=== PATIENT | male | born 1955 | race Caucasian/White ===

== ENCOUNTER 2017-10-27 12:38 | Emergency (ER) | payer MEDICARE, OTHER ==
[~2017-10-27] VITALS: Ht 182.9 cm; Wt 81.7 kg
[~2017-10-27 12:38] MED LIST: ACYC800 PO; CEPH500 PO; HYDACE5 PO; LISI20 PO; OXYACE5T PO; TOBR.3OPO BOTHEYES; TRAM50 PO
[2017-10-27] MEDS ORDERED: Bactrim Ds Tab1 EACH PO (15:38)
[2017-10-27] MEDS ORDERED: Keflex500 MG PO (15:38)
== END 2017-10-27 16:02 | disposition home or self-care (01) ==
LOC: ER 12:38
DX: L03.115 Cellulitis of right lower limb (principal); I10 Essential (primary) hypertension
CPT/HCPCS: 73630; 93971; 99284

== ENCOUNTER 2018-05-22 12:49 | Emergency (ER) | payer MEDICARE, OTHER ==
[~2018-05-22] VITALS: Ht 182.9 cm; Wt 90.7 kg
[~2018-05-22 12:49] MED LIST changes: +Bactrim Ds Tab1 EACH PO; +Keflex500 MG PO; +Norco 5-325 Ta1 EACH PO; +Vibramycin100 MG PO
[2018-05-22] MEDS ORDERED: LISI20 PO (13:13)
== END 2018-05-22 14:28 | disposition home or self-care (01) ==
LOC: ER 12:49
DX: M25.532 Pain in left wrist (principal); Z79.899 Other long term (current) drug therapy
CPT/HCPCS: 29125; 73110; 99283-25

== ENCOUNTER 2018-06-04 15:41 | Emergency (ER) | payer MEDICARE, OTHER ==
[~2018-06-04] VITALS: Ht 182.9 cm; Wt 90.7 kg
[2018-06-04] MEDS ORDERED: Monodox100 MG PO (16:34)
== END 2018-06-04 16:43 | disposition home or self-care (01) ==
LOC: ER 15:41
DX: I87.2 Venous insufficiency (chronic) (peripheral) (principal); L03.115 Cellulitis of right lower limb; I10 Essential (primary) hypertension
CPT/HCPCS: 99283

== ENCOUNTER 2018-06-15 13:30 | Day surgery (SDC) | payer MEDICARE, OTHER ==
[~2018-06-15 13:30] MED LIST changes: +Monodox100 MG PO
== END 2018-06-15 22:39 | disposition home or self-care (01) ==
LOC: WOUND
DX: T81.89XA Other complications of procedures, not elsewhere classified, initial encounter (principal); I83.012 Varicose veins of right lower extremity with ulcer of calf; L97.212 Non-pressure chronic ulcer of right calf with fat layer exposed; I10 Essential (primary) hypertension; I83.92 Asymptomatic varicose veins of left lower extremity
CPT/HCPCS: G0463

== ENCOUNTER 2018-06-30 00:12 | Day surgery (SDC) | payer MEDICARE, OTHER | END 2018-06-30 22:40 | disposition home or self-care (01) | LOC: WOUND 00:12 | DX: L97.812 Non-pressure chronic ulcer of other part of right lower leg with fat layer exposed (principal); I87.2 Venous insufficiency (chronic) (peripheral); I10 Essential (primary) hypertension | CPT/HCPCS: 11104; 88305; 88312 ==

== ENCOUNTER 2018-07-07 08:00 | Day surgery (SDC) | payer MEDICARE, OTHER | END 2018-07-07 22:34 | disposition home or self-care (01) | LOC: WOUND 08:00 | DX: L97.812 Non-pressure chronic ulcer of other part of right lower leg with fat layer exposed (principal); I87.2 Venous insufficiency (chronic) (peripheral); I10 Essential (primary) hypertension | CPT/HCPCS: G0463 ==

== ENCOUNTER 2018-08-13 01:10 | Day surgery (SDC) | payer MEDICARE, OTHER | END 2018-08-13 22:45 | disposition home or self-care (01) | LOC: WOUND 01:10 | DX: I87.2 Venous insufficiency (chronic) (peripheral) (principal); L97.812 Non-pressure chronic ulcer of other part of right lower leg with fat layer exposed; I10 Essential (primary) hypertension; I89.0 Lymphedema, not elsewhere classified; I73.9 Peripheral vascular disease, unspecified; M10.9 Gout, unspecified | CPT/HCPCS: G0463 ==

== ENCOUNTER 2018-09-03 07:53 | Day surgery (SDC) | payer MEDICARE, OTHER | END 2018-09-03 23:19 | disposition home or self-care (01) | LOC: WOUND 07:53 | DX: I87.2 Venous insufficiency (chronic) (peripheral) (principal); L97.812 Non-pressure chronic ulcer of other part of right lower leg with fat layer exposed; L02.01 Cutaneous abscess of face; I10 Essential (primary) hypertension | CPT/HCPCS: G0463 ==

== ENCOUNTER 2019-03-16 12:38 | Emergency (ER) | payer MEDICARE, OTHER ==
[~2019-03-16] VITALS: Ht 182.9 cm; Wt 90.7 kg
[2019-03-16] MEDS ORDERED: Monodox100 MG PO (13:37)
[2019-03-16] MEDS ORDERED: MUPIROCIN1 GM TOP (13:37)
== END 2019-03-16 13:55 | disposition home or self-care (01) ==
LOC: ER 12:38
DX: L02.01 Cutaneous abscess of face (principal); L03.211 Cellulitis of face; I10 Essential (primary) hypertension; Z79.899 Other long term (current) drug therapy
CPT/HCPCS: 99282

== ENCOUNTER → 2019-05-15 | Outpatient (CLI) | payer MEDICARE, OTHER ==
[~2019-05-15] MED LIST changes: +MUPIROCIN1 GM TOP
== END | disposition home or self-care (01) ==
LOC: LAB EV 10:42 → LAB SHORT 10:42
DX: L08.9 Local infection of the skin and subcutaneous tissue, unspecified (principal)
CPT/HCPCS: 87070; 87205

== ENCOUNTER → 2019-06-17 | Outpatient (CLI) | payer MEDICARE, OTHER | LOC: LAB SHORT 10:30 → LAB 10:30 | DX: L08.9 Local infection of the skin and subcutaneous tissue, unspecified (principal); L57.0 Actinic keratosis; R21 Rash and other nonspecific skin eruption | CPT/HCPCS: 87070; 87205 ==

== ENCOUNTER → 2019-10-07 | Outpatient (CLI) | payer MEDICARE, OTHER | LOC: LAB SHORT 16:49 → LAB 16:49 | DX: B35.8 Other dermatophytoses (principal) | CPT/HCPCS: 87070; 87205 ==

== ENCOUNTER → 2019-10-22 | Outpatient (CLI) | payer MEDICARE, OTHER | LOC: LAB 12:00 → LAB SHORT 12:00 | DX: D48.5 Neoplasm of uncertain behavior of skin (principal) | CPT/HCPCS: 87071; 87075; 87205 ==

== ENCOUNTER 2021-01-13 11:38 | Emergency (ER) | payer MEDICARE, OTHER ==
[~2021-01-13] VITALS: Ht 180.3 cm; Wt 102.1 kg
[2021-01-13 12:43] LABS: BASOPHILS ABSOLUTE AUTO 0.06 K/mm3 (0.00-0.23); BASOPHILS PERCENT AUTO 1 % (0-2); EOSINOPHILS ABSOLUTE AUTO 0.27 K/mm3 (0.00-0.68); EOSINOPHILS PERCENT AUTO 2 % (0-6); Hematocrit 44.2 % (37.0-53.0); Hemoglobin 14.5 g/dL (13.5-17.5); IMMATURE GRAN ABSOLUTE AUTO 0.05 K/mm3 (0.00-0.10); IMMATURE GRAN PERCENT AUTO 1 % (0-1); LYMPHOCYTES ABSOLUTE AUTO 1.97 K/mm3 (0.84-5.20); LYMPHOCYTES PERCENT AUTO 18 % (21-46); MONOCYTES PERCENT AUTO 8 % (4-13); Mean Corpuscular HGB 30.5 pg (26.0-34.0); Mean Corpuscular HGB Conc 32.8 g/dL (31.5-36.5); Mean Corpuscular Volume 93 fL (80-100); Mean Platelet Volume 9.3 fL (9.1-12.4); NEUTROPHILS PERCENT AUTO 71 % (41-73); Platelet Count 227 K/mm3 (150-400); RDW Coefficient Variation 13.3 % (11.7-14.2); RDW Standard Deviation 45.5 fL (35.1-46.3); Red Blood Cell Count 4.75 M/mm3 (4.30-5.90); White Blood Cell Count 11.05 K/mm3 (4.00-11.30)
[2021-01-13 13:10] LABS: Alanine Aminotransfer (ALT/SGP 31 U/L (12-78); Albumin, Blood 3.9 g/dL (3.4-5.0); Albumin/Globulin Ratio 0.9 (0.8-1.8); Alk Phos 72 U/L (50-136); Anion Gap 5 mmol/L (6-16); Aspartate Aminotrans (AST/SGOT 29 U/L (12-37); Bilirubin, Total 0.4 mg/dL (0.1-1.0); Blood Urea Nitrogen 38 mg/dL (8-24); Bun/Creatinine Ratio 29.7 (12.0-20.0); CO2, Blood 25 mmol/L (21-32); Calcium, Blood 8.6 mg/dL (8.5-10.1); Chloride, Blood 106 mmol/L (98-108); Creatinine, Blood 1.28 mg/dL (0.60-1.20); Globulin, Blood 4.2 g/dL (2.2-4.0); Glomerular Filtration Rate 57 (60-); Glucose, Blood 113 mg/dL (70-99); Potassium, Blood 4.9 mmol/L (3.5-5.5); Sodium, Blood 136 mmol/L (136-145); Total Protein, Blood 8.1 g/dL (6.4-8.2); Troponin I <0.015 ng/mL (0.000-0.040)
[2021-01-13 14:29] LABS: International Normalized Ratio 0.86; Prothrombin Time Results 9.4 Sec (9.7-11.5)
[2021-01-13 15:58] LABS: Source, Urine Clean Catch
[2021-01-13] MEDS ORDERED: LOSA25 PO (15:58)
[2021-01-13] MEDS ORDERED: LISI20 PO (15:59)
[2021-01-13 16:00] LABS: Appearance, Urine Clear (Clear); Bilirubin, Urine Neg (Neg); Blood, Urine 1+ (Neg); Color, Urine Yellow (P-Yellow); Glucose Qualitative, Urine Neg (Neg); Ketones, Urine Neg (Neg); Leukocyte Esterase, Urine Neg (Neg); Nitrite, Urine Neg (Neg); Protein, Urine 2+ (Neg); Specific Gravity, Urine 1.025 (1.003-1.022); Urobilinogen, Urine NORM (Normal)
[2021-01-13 16:17] LABS: Bacteria Few /hpf; Hyaline Casts 0-2 /lpf (0-2); Red Blood Cells, Urine 0-2 /hpf (0-2); Squamous Epithelial Cells Rare /hpf (Few); White Blood Cells, Urine 0-2 /hpf (0-5)
[2021-01-13 16:42] LABS: SARS-Cov-2 (COVID-19) PCR, MMC NEGATIVE (NEGATIVE)
== END 2021-01-13 17:32 | disposition home or self-care (01) ==
LOC: ER 11:38
PROVIDERS: Emergency Medicine Emergency Medical Services; Physician Assistant
DX: N48.30 Priapism, unspecified (principal); I10 Essential (primary) hypertension; Z20.822 Contact with and (suspected) exposure to COVID-19; Z79.899 Other long term (current) drug therapy
CPT/HCPCS: 36415; 54235; 80053; 81001; 84484; 85025; 85610; 96374-59; 96376-59; 99284-25; J0461; J2270; J2370; U0004

== ENCOUNTER 2021-02-06 12:31 | Emergency (ER) | payer MEDICARE, OTHER ==
[~2021-02-06] VITALS: Ht 180.3 cm; Wt 97.5 kg
[~2021-02-06 12:31] MED LIST changes: +LOSA25 PO
[2021-02-06 13:22] LABS: BASOPHILS ABSOLUTE AUTO 0.07 K/mm3 (0.00-0.23); BASOPHILS PERCENT AUTO 1 % (0-2); EOSINOPHILS PERCENT AUTO 4 % (0-6); Hematocrit 34.7 % (37.0-53.0); Hemoglobin 11.7 g/dL (13.5-17.5); IMMATURE GRAN ABSOLUTE AUTO 0.03 K/mm3 (0.00-0.10); IMMATURE GRAN PERCENT AUTO 0 % (0-1); LYMPHOCYTES ABSOLUTE AUTO 1.36 K/mm3 (0.84-5.20); LYMPHOCYTES PERCENT AUTO 18 % (21-46); MONOCYTES ABSOLUTE AUTO 0.62 K/mm3 (0.16-1.47); MONOCYTES PERCENT AUTO 8 % (4-13); Mean Corpuscular HGB 29.8 pg (26.0-34.0); Mean Corpuscular HGB Conc 33.7 g/dL (31.5-36.5); Mean Corpuscular Volume 88 fL (80-100); NEUTROPHILS PERCENT AUTO 68 % (41-73); Platelet Count 354 K/mm3 (150-400); RDW Coefficient Variation 12.6 % (11.7-14.2); RDW Standard Deviation 41.3 fL (35.1-46.3); Red Blood Cell Count 3.93 M/mm3 (4.30-5.90); White Blood Cell Count 7.48 K/mm3 (4.00-11.30)
[2021-02-06 13:56] LABS: Albumin, Blood 3.2 g/dL (3.4-5.0); Albumin/Globulin Ratio 0.7 (0.8-1.8); Bilirubin, Total 0.4 mg/dL (0.1-1.0); Bun/Creatinine Ratio 16.3 (12.0-20.0); Calcium, Blood 9.4 mg/dL (8.5-10.1); Creatinine, Blood 1.29 mg/dL (0.60-1.20); Globulin, Blood 4.7 g/dL (2.2-4.0); Potassium, Blood 4.2 mmol/L (3.5-5.5); Total Protein, Blood 7.9 g/dL (6.4-8.2)
[2021-02-06] MEDS ORDERED: Pepcid20 MG PO (16:32)
[2021-02-06] MEDS ORDERED: METPRE4DP PO (16:32)
== END 2021-02-06 17:40 | disposition home or self-care (01) ==
LOC: ER 12:31
PROVIDERS: Physician Assistant
DX: T78.3XXA Angioneurotic edema, initial encounter (principal); T46.4X5A Adverse effect of angiotensin-converting-enzyme inhibitors, initial encounter; I10 Essential (primary) hypertension; Z79.899 Other long term (current) drug therapy
CPT/HCPCS: 80053; 85025; 96374; 96375; 99284-25; J2930; J7030

== ENCOUNTER → 2021-07-17 | Outpatient (CLI) | payer MEDICARE, OTHER ==
[~2021-07-17] MED LIST changes: +METPRE4DP PO; +Pepcid20 MG PO
== END ==
LOC: LAB SHORT 11:52 → LAB 11:52
DX: R60.9 Edema, unspecified (principal)
CPT/HCPCS: 85379

== ENCOUNTER 2023-12-09 09:20 | Emergency (ER) | payer MEDICARE, OTHER ==
[~2023-12-09] VITALS: Ht 182.9 cm; Wt 90.7 kg
[~2023-12-09 09:20] MED LIST changes: +ATORVASTATIN CA20 MG PO; +BUMETANIDE2 M6 PO; +HYDRA25 PO; +KLOR-CON 1010 ME9 PO; +LOSARTAN POTAS100 M1 PO; +METOPROLOL TART5010 PO; +NEURONTIN300 MG PO; +PRED20 PO; +TEMA30 PO
[2023-12-09] MEDS ORDERED: HYDROcodone 5-APAP 325 TAB PO ONE (10:30)
[2023-12-09 10:50] LABS: Albumin, Blood 3.3 g/dL (3.4-5.0); Albumin/Globulin Ratio 0.8 (0.8-1.8); Bilirubin, Total 0.5 mg/dL (0.1-1.0); Bun/Creatinine Ratio 27.5 (12.0-20.0); C-REACTIVE PROTEIN, EXT RANGE 1.86 mg/dL (0.000-0.300); Calcium, Blood 9.3 mg/dL (8.5-10.1); Creatinine, Blood 1.6 mg/dL (0.60-1.20); Globulin, Blood 4.3 g/dL (2.2-4.0); Total Protein, Blood 7.6 g/dL (6.4-8.2)
[2023-12-09 11:32] LABS: BASOPHILS ABSOLUTE AUTO 0.05 K/mm3 (0.00-0.23); BASOPHILS PERCENT AUTO 0 % (0-2); EOSINOPHILS ABSOLUTE AUTO 0.31 K/mm3 (0.00-0.68); EOSINOPHILS PERCENT AUTO 3 % (0-6); Hematocrit 36.4 % (37.0-53.0); Hemoglobin 12.5 g/dL (13.5-17.5); IMMATURE GRAN ABSOLUTE AUTO 0.06 K/mm3 (0.00-0.10); IMMATURE GRAN PERCENT AUTO 1 % (0-1); LYMPHOCYTES ABSOLUTE AUTO 1.33 K/mm3 (0.84-5.20); LYMPHOCYTES PERCENT AUTO 12 % (21-46); MONOCYTES ABSOLUTE AUTO 1.15 K/mm3 (0.16-1.47); MONOCYTES PERCENT AUTO 10 % (4-13); Mean Corpuscular HGB 30.1 pg (26.0-34.0); Mean Corpuscular HGB Conc 34.3 g/dL (31.5-36.5); Mean Corpuscular Volume 88 fL (80-100); Mean Platelet Volume 9.1 fL (9.1-12.4); NEUTROPHILS ABSOLUTE AUTO 8.37 K/mm3 (1.96-9.15); NEUTROPHILS PERCENT AUTO 74 % (41-73); Platelet Count 220 K/mm3 (150-400); RDW Coefficient Variation 13.4 % (11.7-14.2); RDW Standard Deviation 42.4 fL (35.1-46.3); Red Blood Cell Count 4.15 M/mm3 (4.30-5.90); White Blood Cell Count 11.27 K/mm3 (4.00-11.30)
[2023-12-09] MEDS ORDERED: Clindamycin 600mg in D5W 50 ML IV ONE (12:45)
[2023-12-09 14:17] VITALS: BP 156/90
[2023-12-09] MEDS ORDERED: CEPH500 PO (14:24)
[2023-12-09] MEDS ORDERED: Bactrim Ds Tab1 EACH PO (14:24)
[2023-12-09] MEDS ORDERED: HYDR1TAB94 PO (14:30)
== END 2023-12-09 14:40 | disposition home or self-care (01) ==
LOC: ER 09:20
PROVIDERS: Physician Assistant
DX: L03.114 Cellulitis of left upper limb (principal); I12.9 Hypertensive chronic kidney disease with stage 1 through stage 4 chronic kidney disease, or unspecified chronic kidney disease; N18.9 Chronic kidney disease, unspecified; E78.5 Hyperlipidemia, unspecified; Z88.8 Allergy status to other drugs, medicaments and biological substances
CPT/HCPCS: 73110; 73130; 73201; 80053; 85025; 86140; A9270; Q9967

== ENCOUNTER 2024-01-31 09:17 | Emergency (ER) | payer MEDICARE, OTHER ==
[~2024-01-31] VITALS: Ht 182.9 cm; Wt 102.1 kg
[~2024-01-31 09:17] MED LIST changes: +HYDR1TAB94 PO
[2024-01-31] MEDS ORDERED: OxyCODONE 7.5 mg/Acetam 325 mg TABLET PO ONE (09:40)
[2024-01-31] MEDS ORDERED: Dexamethasone Sod Phos 10 MG/ML 1ML VIAL PO ONE (09:40)
[2024-01-31 10:26] LABS: BASOPHILS ABSOLUTE AUTO 0.04 K/mm3 (0.00-0.23); BASOPHILS PERCENT AUTO 0 % (0-2); EOSINOPHILS ABSOLUTE AUTO 0.33 K/mm3 (0.00-0.68); EOSINOPHILS PERCENT AUTO 3 % (0-6); Hematocrit 38.8 % (37.0-53.0); Hemoglobin 13.2 g/dL (13.5-17.5); IMMATURE GRAN ABSOLUTE AUTO 0.06 K/mm3 (0.00-0.10); IMMATURE GRAN PERCENT AUTO 1 % (0-1); LYMPHOCYTES ABSOLUTE AUTO 1.39 K/mm3 (0.84-5.20); LYMPHOCYTES PERCENT AUTO 13 % (21-46); MONOCYTES ABSOLUTE AUTO 0.96 K/mm3 (0.16-1.47); MONOCYTES PERCENT AUTO 9 % (4-13); Mean Corpuscular HGB 30.6 pg (26.0-34.0); Mean Corpuscular Volume 90 fL (80-100); Mean Platelet Volume 8.9 fL (9.1-12.4); NEUTROPHILS ABSOLUTE AUTO 8.17 K/mm3 (1.96-9.15); NEUTROPHILS PERCENT AUTO 75 % (41-73); Platelet Count 296 K/mm3 (150-400); RDW Coefficient Variation 13.3 % (11.7-14.2); Red Blood Cell Count 4.32 M/mm3 (4.30-5.90); White Blood Cell Count 10.95 K/mm3 (4.00-11.30)
[2024-01-31 10:45] LABS: Bun/Creatinine Ratio 27.1 (12.0-20.0); Calcium, Blood 9.6 mg/dL (8.5-10.1); Creatinine, Blood 1.44 mg/dL (0.60-1.20); Potassium, Blood 3.8 mmol/L (3.5-5.5)
[2024-01-31] MEDS ORDERED: HYDR1TAB94 PO (12:33)
[2024-01-31] MEDS ORDERED: SULTRIDS PO (12:33)
[2024-01-31 12:57] VITALS: BP 142/90
== END 2024-01-31 12:55 | disposition home or self-care (01) ==
LOC: ER 09:17
PROVIDERS: Emergency Medicine
DX: L03.113 Cellulitis of right upper limb (principal); Z88.8 Allergy status to other drugs, medicaments and biological substances; Z79.899 Other long term (current) drug therapy; I12.9 Hypertensive chronic kidney disease with stage 1 through stage 4 chronic kidney disease, or unspecified chronic kidney disease; N18.9 Chronic kidney disease, unspecified
CPT/HCPCS: 73200; 73201; 80048; 85025; 99284-25; A9270; J1100; Q9967

== ENCOUNTER 2024-07-18 11:16 | Emergency (ER) | payer MEDICARE, OTHER ==
[~2024-07-18] VITALS: Ht 182.9 cm; Wt 108.9 kg
[~2024-07-18 11:16] MED LIST changes: +SULTRIDS PO
[2024-07-18 11:58] VITALS: BP 147/90
[2024-07-18] MEDS ORDERED: SULTRIDS PO (12:02)
[2024-07-18] MEDS ORDERED: HYDROCODONE-AC1 EA19 PO (12:02)
== END 2024-07-18 12:05 | disposition home or self-care (01) ==
LOC: ER 11:16
DX: L03.113 Cellulitis of right upper limb (principal); I12.9 Hypertensive chronic kidney disease with stage 1 through stage 4 chronic kidney disease, or unspecified chronic kidney disease; N18.9 Chronic kidney disease, unspecified; Z79.899 Other long term (current) drug therapy
CPT/HCPCS: 99282

== ENCOUNTER 2024-08-05 09:38 | Inpatient (IN) | payer MEDICARE, OTHER ==
[~2024-08-05] VITALS: Ht 182.9 cm; Wt 104.0 kg
[~2024-08-05 09:38] MED LIST changes: +HYDROCODONE-AC1 EA19 PO; +METO25 PO; -METOPROLOL TART5010 PO
[2024-08-05 15:44] LABS: BASOPHILS ABSOLUTE AUTO 0.05 K/mm3 (0.00-0.23); BASOPHILS PERCENT AUTO 1 % (0-2); EOSINOPHILS ABSOLUTE AUTO 0.23 K/mm3 (0.00-0.68); EOSINOPHILS PERCENT AUTO 2 % (0-6); Hematocrit 39.2 % (37.0-53.0); Hemoglobin 13.2 g/dL (13.5-17.5); IMMATURE GRAN ABSOLUTE AUTO 0.04 K/mm3 (0.00-0.10); IMMATURE GRAN PERCENT AUTO 0 % (0-1); LYMPHOCYTES ABSOLUTE AUTO 1.18 K/mm3 (0.84-5.20); LYMPHOCYTES PERCENT AUTO 11 % (21-46); MONOCYTES ABSOLUTE AUTO 0.75 K/mm3 (0.16-1.47); MONOCYTES PERCENT AUTO 7 % (4-13); Mean Corpuscular HGB 29.7 pg (26.0-34.0); Mean Corpuscular HGB Conc 33.7 g/dL (31.5-36.5); Mean Corpuscular Volume 88 fL (80-100); Mean Platelet Volume 8.8 fL (9.1-12.4); NEUTROPHILS PERCENT AUTO 79 % (41-73); Platelet Count 323 K/mm3 (150-400); RDW Coefficient Variation 13.1 % (11.7-14.2); RDW Standard Deviation 41.6 fL (35.1-46.3); Red Blood Cell Count 4.45 M/mm3 (4.30-5.90); White Blood Cell Count 10.75 K/mm3 (4.00-11.30)
[2024-08-05 16:04] LABS: C-REACTIVE PROTEIN, EXT RANGE 1.75 mg/dL (0.000-0.300)
[2024-08-05] MEDS ORDERED: Morphine Sulfate 4 MG/1 ML Injection IV ONE (16:05)
[2024-08-05 16:07] LABS: Albumin, Blood 3.3 g/dL (3.4-5.0); Albumin/Globulin Ratio 0.7 (0.8-1.8); Bilirubin, Total 0.3 mg/dL (0.1-1.0); Bun/Creatinine Ratio 26.4 (12.0-20.0); Calcium, Blood 9.6 mg/dL (8.5-10.1); Creatinine, Blood 1.4 mg/dL (0.60-1.20); Globulin, Blood 4.8 g/dL (2.2-4.0); Potassium, Blood 3.9 mmol/L (3.5-5.5); Total Protein, Blood 8.1 g/dL (6.4-8.2)
[2024-08-05] MEDS ORDERED: Clindamycin 600mg in D5W 50 ML IV ONE (16:15)
[2024-08-05] MEDS ORDERED: HYDROmorphone HCl/Pf 1MG SYR IV ONE (17:05)
[2024-08-05] MEDS ORDERED: Lactated Ringer's 1,000 ML IV SCH (20:35)
[2024-08-05] MEDS ORDERED: Ondansetron HCl 2 MG / ML 2ML Vial IV PRN (20:35)
[2024-08-05] MEDS ORDERED: OxyCODONE 5 mg/Acetamin 325 mg TABLET PO PRN (20:40)
[2024-08-05] MEDS ORDERED: Sennosides 8.6 MG Tab PO SCH (21:00)
[2024-08-05] MEDS ORDERED: CeFAZolin Sodium 2,000 MG in NS 100 ML IV SCH (21:00)
[2024-08-05] MEDS ORDERED: Lactobacil 2-S.Thermo-Bifido 1 1 Cap PO SCH (21:00)
[2024-08-05] MEDS ORDERED: HydrALAZINE HCl 25 MG Tab PO SCH (21:00)
[2024-08-05 22:15] VITALS: BP 168/86
[2024-08-05 22:44] LABS: U Amphetamine Screen Not Detected; U Barbituate Screen Not Detected; U Benzodiazapine Screen Not Detected; U Buprenorphine Screen Not Detected; U Cannabinoids Screen DETECTED; U Cocaine Screen Not Detected; U Methadone Screen Not Detected; U Methamphetamine Screen DETECTED; U Opiates Screen DETECTED; U Oxycodone Screen Not Detected; U Phencyclidine Screen Not Detected
[2024-08-06 00:09] VITALS: BP 144/84
--- NOTE | 2024-08-06 04:59 | NUR ---
SHIFT SUMMARY ANOOP WAS ALERT AND FULLY ORIENTED WHEN HE WAS ADMITTED FROM THE ED. PT ABLE TO AMBULATE INDEPENDENTLY. CHIEF C/O L HAND CELLULITIS. ADMIT COMPLETE PT SETTLED. PT PAINFUL, MEDICATED TO MODERATE EFFECT. NO ACUTE EVENTS AFTER ARRIVAL OR NOTED CHANGES TO PT CONDITION. PT ABLE TO WIGGLE FINGERS, CIRCULATION INTACT.
[2024-08-06 05:48] VITALS: BP 156/90
[2024-08-06 06:29] LABS: Hematocrit 36.4 % (37.0-53.0); Hemoglobin 12.1 g/dL (13.5-17.5); Mean Corpuscular HGB 29.7 pg (26.0-34.0); Mean Corpuscular HGB Conc 33.2 g/dL (31.5-36.5); Mean Corpuscular Volume 89 fL (80-100); Platelet Count 242 K/mm3 (150-400); RDW Coefficient Variation 13.2 % (11.7-14.2); RDW Standard Deviation 43.4 fL (35.1-46.3); Red Blood Cell Count 4.07 M/mm3 (4.30-5.90)
[2024-08-06 06:55] LABS: Bun/Creatinine Ratio 23.1 (12.0-20.0); Calcium, Blood 8.9 mg/dL (8.5-10.1); Creatinine, Blood 1.34 mg/dL (0.60-1.20); Potassium, Blood 3.7 mmol/L (3.5-5.5)
[2024-08-06 07:21] VITALS: BP 189/91
[2024-08-06] MEDS ORDERED: Heparin Sodium,Porcine 5,000 UNIT/0.5 ML SDV SC SCH (09:00)
[2024-08-06] MEDS ORDERED: Atorvastatin 10 MG Tab PO SCH (09:00)
[2024-08-06 14:48] VITALS: BP 178/85
--- NOTE | 2024-08-06 17:12 | NUR ---
SHIFT SUMMARY PATIENT IS AOX4, SBA TO IND IN ROOM. LEFT HAND AND WRIST NOTICIBLY MORE SWOLLEN THAN RIGHT HAND. LIMITED ROM. MEDICATED FOR PAIN T/O SHIFT. ORTHO CONSULT WAS PLACED TODAY AND PATIENT WAS SEEN BY DR. FAGAN, NO NEW ORDERS. IV ABX INFUSED. PATIENT TOLERATING PO INTAKE AND VOIDS INDEP. VITAL SIGNS ARE STABLE CALL LIGHT IN REACH.
[2024-08-06 18:59] VITALS: BP 141/75
--- NOTE | 2024-08-07 04:24 | NUR ---
SHIFT SUMMARY ANOOP WAS ALERT AND FULLY ORIENTED ON ASSESSMENT. PT CONDITION REMAINS UNCHANGED SINCE ADMIT. PAIN MODERATELY WELL CONTROLLED SENSATION AND CIRCULATION TO HAND INTACT. NO ACUTE EVENTS NO CHANGES TONIGHT. PT RESTING.
[2024-08-07 04:57] VITALS: BP 162/101
[2024-08-07 07:13] VITALS: BP 153/95
[2024-08-07] MEDS ORDERED: LORazepam 0.5 MG Tab PO PRN (08:40)
[2024-08-07 10:03] VITALS: BP 155/102
[2024-08-07 11:14] VITALS: BP 130/94
[2024-08-07 14:32] VITALS: BP 134/97
--- NOTE | 2024-08-07 16:00 | NUR ---
ASSUMED CARE OF PATIENT AT THIS TIME.
--- NOTE | 2024-08-07 16:12 | NUR ---
SHIFT SUMMARY/TRANSFER OF CARE PT IS A/OX4, IND TO BR. L HAND SWELLING, NO REDNESS OR DRAINAGE PRESENT. PAIN MANAGEABLE W/ PAIN MEDS PER EMAR. IV ABX GIVEN. PT MEDICATED FOR ANXIETY THIS AM W/ GOOD RESULTS. VSS. PT SLEEPING IN BED W/ CALL LIGHT IN REACH. REPORT TO INES SOLORZANO.
--- NOTE | 2024-08-07 17:48 | NUR ---
STABLE SINCE THIS RN ASSUMED CARE OF PT AT 1600. PT UP TO AMBULATE HALLWAYS INDEP. MEDICATED PRN PAIN AND ANXIETY. TOLERATING DIET WELL. CONT ABX THERAPY.
[2024-08-07 19:08] VITALS: BP 145/97
[2024-08-08 04:11] VITALS: BP 170/96
[2024-08-08 04:12] LABS: CYCLIC CITRULLINATED PEP,IGG/A 4 Units (0-19)
[2024-08-08 07:01] VITALS: BP 182/103
[2024-08-08 07:05] VITALS: BP 152/92
[2024-08-08 14:12] VITALS: BP 157/97
--- NOTE | 2024-08-08 17:02 | NUR ---
SUMMARY NO ACUTE CHANGES T/O SHIFT. PT INDEPENDENT, AMBULATED IN HALLS THIS AFTERNOON. MEDICATED PER ORDERS FOR PAIN. IV ABX PER ORDERS. RESTING IN BED AT THIS TIME, CALL LIGHT IN REACH.
[2024-08-08 18:55] VITALS: BP 138/96
[2024-08-08 22:09] LABS: ANTI-NUCLEAR AB ANA,IGG ELISA None Detected (None Detected)
[2024-08-09 04:56] VITALS: BP 152/90
[2024-08-09 07:06] VITALS: BP 158/94
--- NOTE | 2024-08-09 07:49 | NUR ---
SUMMARY NO ACUTE CHANGES TONIGHT.REPORTS PAIN CONTROLLED WITH PERCOCET.
[2024-08-09 14:39] VITALS: BP 176/100
--- NOTE | 2024-08-09 17:20 | NUR ---
END OF SHIFT PT RESTING QUIETLY IN ROOM. IV CURRENTLY TO SL. LEFT HAND REMAINS SWOLLEN. PT INDEPENDENT IN ROOM. WILL CONTINUE TO MONITOR.
[2024-08-09 20:05] VITALS: BP 155/95
[2024-08-09] MEDS ORDERED: OxyCODONE 5 mg/Acetamin 325 mg TABLET PO PRN (20:10)
[2024-08-10 04:44] VITALS: BP 161/101
[2024-08-10 05:17] LABS: Hematocrit 35.8 % (37.0-53.0); Hemoglobin 11.9 g/dL (13.5-17.5); Mean Corpuscular HGB 29.2 pg (26.0-34.0); Mean Corpuscular HGB Conc 33.2 g/dL (31.5-36.5); Mean Corpuscular Volume 88 fL (80-100); Mean Platelet Volume 9.6 fL (9.1-12.4); Platelet Count 176 K/mm3 (150-400); RDW Coefficient Variation 13.1 % (11.7-14.2); Red Blood Cell Count 4.07 M/mm3 (4.30-5.90); White Blood Cell Count 5.13 K/mm3 (4.00-11.30)
[2024-08-10 05:33] LABS: Albumin, Blood 2.8 g/dL (3.4-5.0); Anion Gap 9 mmol/L (3-11); Blood Urea Nitrogen 23 mg/dL (8-24); Bun/Creatinine Ratio 17.3 (12.0-20.0); CO2, Blood 26 mmol/L (21-32); Calcium, Blood 8.5 mg/dL (8.5-10.1); Chloride, Blood 106 mmol/L (98-108); Creatinine, Blood 1.33 mg/dL (0.60-1.20); Glomerular Filtration Rate 59 (60-); Glucose, Blood 93 mg/dL (70-99); Phosphorus, Blood 3.3 mg/dL (2.5-4.9); Sodium, Blood 134 mmol/L (136-145)
[2024-08-10 05:34] LABS: Potassium, Blood 6.7 mmol/L (3.5-5.5)
--- NOTE | 2024-08-10 06:15 | NUR ---
NOC SUMMARY- PT REPORTING INCREASED PAIN. PROVIDER CALLED AND A ADDITIONAL TAB OF PAIN MED WAS ORDERED. PT PAIN MANAGED WELL. PT TOLERATING PO. PT VOIDING WELL. PT HAD A CRITICAL K+. PT WAS A DIFFICULT LAB DRAW. DR HAIR WAS CALLED AND HE ASKED FOR A REDRAW OF LAB. AWAITING REDRAW CURRENTLY. PT IN NO DISTRESS. PT DENIES CX PAIN OR PRESSURE. CALL LIGHT IN REACH.
[2024-08-10 07:17] VITALS: BP 175/94
[2024-08-10 07:29] LABS: Magnesium, Blood 2.1 mg/dL (1.6-2.4)
[2024-08-10 07:52] LABS: Albumin, Blood 2.8 g/dL (3.4-5.0); Anion Gap 9 mmol/L (3-11); Blood Urea Nitrogen 23 mg/dL (8-24); Bun/Creatinine Ratio 16.1 (12.0-20.0); CO2, Blood 26 mmol/L (21-32); Calcium, Blood 8.7 mg/dL (8.5-10.1); Chloride, Blood 107 mmol/L (98-108); Creatinine, Blood 1.43 mg/dL (0.60-1.20); Glomerular Filtration Rate 54 (60-); Glucose, Blood 93 mg/dL (70-99); Phosphorus, Blood 3.1 mg/dL (2.5-4.9); Potassium, Blood 4.6 mmol/L (3.5-5.5); Sodium, Blood 137 mmol/L (136-145)
[2024-08-10] MEDS ORDERED: PredniSONE 20 MG Tab PO SCH (13:00)
[2024-08-10 14:14] VITALS: BP 179/93
[2024-08-10 14:15] VITALS: BP 179/93
--- NOTE | 2024-08-10 17:48 | NUR ---
END OF SHIFT PT RESTING QUIETLY. LEFT HAND REMAINS SWOLLEN. DENIES COMPLAINTS.
[2024-08-10 19:16] VITALS: BP 180/99
[2024-08-11 04:41] VITALS: BP 160/100
--- NOTE | 2024-08-11 04:49 | NUR ---
SHIFT SUMMARY; PATIENT SLEPT IN LONG INTERVALS, UP TO THE BR TWICE. MEDICATED FOR PAIN TWICE. PATIENT FEELS THE SWELLING IS STARTING TO GO DOWN IN HIS HAND. BP'S CONTINUE TO BE ELEVATED. HE STATES HE TAKES MORE BP MED WHEN HE IS HOME AND A DIURETIC.
[2024-08-11 06:27] LABS: Bun/Creatinine Ratio 18.3 (12.0-20.0); Calcium, Blood 8.8 mg/dL (8.5-10.1); Creatinine, Blood 1.31 mg/dL (0.60-1.20); Potassium, Blood 5.1 mmol/L (3.5-5.5)
[2024-08-11 06:51] LABS: Hematocrit 35.8 % (37.0-53.0); Hemoglobin 12.1 g/dL (13.5-17.5); Mean Corpuscular HGB 29.7 pg (26.0-34.0); Mean Corpuscular HGB Conc 33.8 g/dL (31.5-36.5); Mean Corpuscular Volume 88 fL (80-100); Mean Platelet Volume 9.3 fL (9.1-12.4); Platelet Count 232 K/mm3 (150-400); RDW Coefficient Variation 12.8 % (11.7-14.2); RDW Standard Deviation 40.8 fL (35.1-46.3); Red Blood Cell Count 4.08 M/mm3 (4.30-5.90); White Blood Cell Count 7.85 K/mm3 (4.00-11.30)
[2024-08-11 08:09] VITALS: BP 179/99
[2024-08-11] MEDS ORDERED: Metoprolol Succinate 50 MG TABCR PO SCH (14:00)
[2024-08-11 15:23] VITALS: BP 152/87
--- NOTE | 2024-08-11 17:11 | NUR ---
SUMMARY CONT. W/ IV ABX, PT REPORTS SWELLING ON R HAND IS "BETTER" REPORTS SWELLING ON L HAND IS NOT BAD R HAND, REPORTS SWELLING ON L HAND "FROM AN IV" INDEPENDENT IN ROOM, AMBULATES DOWN THE HALLS FREQUENTLY, NO ACUTE CHANGES THIS SHIFT.
[2024-08-11 19:40] VITALS: BP 160/90
--- NOTE | 2024-08-12 04:58 | NUR ---
SHIFT SUMMARY NO ACUTE CHANGES OVERNIGHT, IV ANTIBIOTICS PER ORDERS. PAIN MANAGED WITH MEDS PER ORDERS. LEFT ARM ELEVATED ON PILLOW. PT HAS BEEN INDEPENDENT IN ROOM, AMBULATES IN HALLS. VITALS STABLE. PLAN OF CARE REMAINS UNCHANGED. BED IN LOWEST POSITION, CALL LIGHT WITHIN REACH.
[2024-08-12 05:08] VITALS: BP 174/93
[2024-08-12 06:32] VITALS: BP 181/90
--- NOTE | 2024-08-12 06:44 | NUR ---
HYPERTENSIVE PT HYPERTENSIVE THIS AM, SBP IN THE 170'S/180'S. DR. CARREON CALLED AND NOTIFIED. MADE HIM AWARE THAT PT IS ON PO HYDRALYZINE AND AND METOPROLOL. NO ADDITIONAL ORDERS GIVEN AT THIS TIME. HE STATES TO CONTINUE WITH WHATS ALREADY ORDERED FOR HTN.
[2024-08-12 07:05] VITALS: BP 178/97
[2024-08-12] MEDS ORDERED: HydrALAZINE HCl 50 MG Tab PO SCH (09:00)
[2024-08-12] MEDS ORDERED: COLCHICINE0.6 MG PO (11:58)
[2024-08-12] MEDS ORDERED: Prednisone10 MG PO (12:00)
--- NOTE | 2024-08-12 12:23 | NUR ---
DC'D HOME, DC INSTRUCTIONS GIVEN, VERBALIZED UNDERSTANDING, RX'S CALLED TO [facility].
== END 2024-08-12 12:25 | disposition home or self-care (01) | DRG 546 ==
LOC: ER 09:38 → SURS 09:39 → ERHOLD 09:39 → SURS 22:05
PROVIDERS: Internal Medicine; Nurse Practitioner Acute Care; Physician Assistant; ADMIT Student in an Organized Health Care Education/Training Program
DX: M06.842 Other specified rheumatoid arthritis, left hand (principal); E87.1 Hypo-osmolality and hyponatremia; L03.114 Cellulitis of left upper limb; L03.113 Cellulitis of right upper limb; M06.841 Other specified rheumatoid arthritis, right hand; F12.10 Cannabis abuse, uncomplicated; F11.10 Opioid abuse, uncomplicated; F15.10 Other stimulant abuse, uncomplicated; E78.5 Hyperlipidemia, unspecified; M10.9 Gout, unspecified; I12.9 Hypertensive chronic kidney disease with stage 1 through stage 4 chronic kidney disease, or unspecified chronic kidney disease; N18.30 Chronic kidney disease, stage 3 unspecified; E87.5 Hyperkalemia; F41.9 Anxiety disorder, unspecified; Z79.891 Long term (current) use of opiate analgesic; Z79.899 Other long term (current) drug therapy
CPT/HCPCS: 36415; 73201; 80048; 80053; 80069; 83605; 83735; 84550; 85025; 85027; 85651; 86038; 86140; 86200; 86430; 87040; 96365-59; 96367; 96375; 97110; 97165; 97530; 97535; 99284-25; A9270; G0378; J0690; J1171; J1644; J2270; J7512; Q9967

== ENCOUNTER 2024-09-23 12:14 | Emergency (ER) | payer MEDICARE, OTHER ==
[~2024-09-23] VITALS: Ht 182.9 cm; Wt 102.1 kg
[2024-09-23 12:20] VITALS: BP 184/115
== END 2024-09-23 18:38 | disposition home or self-care (01) ==
LOC: ER 12:14
DX: M79.642 Pain in left hand (principal); M79.89 Other specified soft tissue disorders; I12.9 Hypertensive chronic kidney disease with stage 1 through stage 4 chronic kidney disease, or unspecified chronic kidney disease; N18.9 Chronic kidney disease, unspecified; Z79.52 Long term (current) use of systemic steroids; Z79.899 Other long term (current) drug therapy; Z88.8 Allergy status to other drugs, medicaments and biological substances

== ENCOUNTER 2025-01-05 10:33 | Emergency (ER) | payer MEDICARE, OTHER ==
[~2025-01-05] VITALS: Ht 182.9 cm; Wt 104.3 kg
[~2025-01-05 10:33] MED LIST changes: +COLCHICINE0.6 MG PO; +OXAYDO5 M1 PO; +Prednisone10 MG PO; +Prednisone20 MG PO
[2025-01-05 10:39] VITALS: BP 227/111
[2025-01-05] MEDS ORDERED: Toprol Xl25 MG PO (10:45)
[2025-01-05] MEDS ORDERED: HYDRA50 PO (10:45)
[2025-01-05] MEDS ORDERED: BUME2 PO (10:45)
[2025-01-05] MEDS ORDERED: HYDROCODONE-AC1 EA10 PO (10:46)
== END 2025-01-05 16:53 | disposition home or self-care (01) ==
LOC: ER 10:33
DX: I12.9 Hypertensive chronic kidney disease with stage 1 through stage 4 chronic kidney disease, or unspecified chronic kidney disease (principal); M06.9 Rheumatoid arthritis, unspecified; E11.22 Type 2 diabetes mellitus with diabetic chronic kidney disease; N18.9 Chronic kidney disease, unspecified; Z79.899 Other long term (current) drug therapy
CPT/HCPCS: 99282